=== PATIENT | male | born 1990 | race Caucasian/White ===

== ENCOUNTER 2019-05-15 12:53 | Observation (INO) ==
[2019-05-15] MEDS ORDERED: SODIUM CHLORIDE 0.9% 1,000 ML IV STA (15:35)
[2019-05-15] MEDS ORDERED: KETOROLAC 30 MG/1 ML VIAL IV STA (15:35)
[2019-05-15] MEDS ORDERED: metroNIDAZOLE INJ 500 MG in PREMIX 1 EACH IV STA (16:05)
[2019-05-15 16:07] LABS: Basophils # 0.1 10*3/uL (0.0-0.2); Basophils % 0.5 % (0.0-0.8); Eosinophils # 0.7 10*3/uL (0.0-0.87); Eosinophils % 6.5 % (0.00-10.9); Hematocrit 46.2 VOL% (42.0-52.0); Hemoglobin 15.1 GM/DL (14.0-18.0); Immature Granulocytes % 0.6 %; Immature Granulocytes Absolute 0.06 #; Lymphocytes # 2.7 10*3/uL (1.4-4.0); Lymphocytes % 25.5 % (21.2-54.2); Mean Corpuscular HGB Conc 32.7 GM/DL (32-36); Mean Corpuscular Volume 92.4 FL (87-102); Mean Platelet Volume 10.6 FL (9.6-12.0); Monocytes % 10.8 % (1.7-12.7); Neutrophils % 56.1 % (38.7-73.9); Platelet Count 196 T/CUMM (130-400); Red Cell Distribution Width 12.3 % (9.3-17.3); White Blood Count 10.6 T/CUMM (4-12)
[2019-05-15 16:25] LABS: Apearance,Urine CLEAR (Clear); Bilirubin,Urine Negative (Negative); Blood, Urine Negative (Negative); Glucose,Urine (UA) Negative (Negative); Ketones,Urine Negative (Negative); Mucus,Urine Occasional /LPF (Occasional); Nitrite,Urine Negative (Negative); Protein,Urine Negative; RBC,Urine 4 /HPF (0-4); Urine Color Yellow (Yellow); Urine Specific Gravity 1.025 (1.001-1.035); Urine Urobilinogen < 2.0 EU/DL (<2.0); WBC,Urine <1 /HPF (0-6)
[2019-05-15 16:37] LABS: Albumin 3.9 G/DL (3.4-5.0); Bilirubin,Total 0.6 MG/DL (0.2-1.0); Calcium 8.9 MG/DL (8.5-10.1); Osmolality,Calculated 277.4 MOS/KG (273-304); Total Protein 7.3 G/DL (6.4-8.3)
[2019-05-15] MEDS ORDERED: fentaNYL 100 MCG/2 ML VIAL IV STA (16:52)
[2019-05-15] MEDS ORDERED: ONDANSETRON 4 MG/2 ML VIAL IV STA (16:52)
[2019-05-15] MEDS ORDERED: LEVOFLOXACIN INJ 750 MG in PREMIX 1 EACH IV STA (16:52)
[2019-05-15] MEDS ORDERED: LEVOFLOXACIN INJ 150 ML IV ONE (16:58)
[2019-05-15] MEDS ORDERED: fentaNYL 100 MCG/2 ML VIAL IV PRN (17:06)
[2019-05-15] MEDS ORDERED: ONDANSETRON 4 MG/2 ML VIAL IV PRN ×2 (17:06→19:18)
[2019-05-15] MEDS ORDERED: HYDROmorphone 2 MG/1 ML VIAL IV PRN (19:18)
[2019-05-15] MEDS ORDERED: ACETAMINOPHEN 325 MG TABLET PO PRN (19:18)
[2019-05-15] MEDS ORDERED: PROMETHAZINE 25 MG/1 ML VIAL IM PRN (19:18)
[2019-05-15] MEDS: PIPERACILLIN/TAZOBACTAM 3,375 MG in SODIUM CHLORIDE 0.9% 100 ML IV SCH (20:02)
[2019-05-15] MEDS: KETOROLAC 15 MG/1 ML VIAL IV SCH (20:03)
[2019-05-15] MEDS ORDERED: DICYCLOMINE 20 MG TABLET PO SCH (21:00)
[2019-05-16] MEDS ORDERED: metroNIDAZOLE INJ 500 MG in PREMIX 1 EACH IV SCH
[2019-05-16] MEDS: KETOROLAC 15 MG/1 ML VIAL IV SCH ×2 (01:23→08:22)
[2019-05-16] MEDS: PIPERACILLIN/TAZOBACTAM 3,375 MG in SODIUM CHLORIDE 0.9% 100 ML IV SCH (04:36)
[2019-05-16 05:02] LABS: Basophils % 0.3 % (0.0-0.8); Eosinophils # 0.7 10*3/uL (0.0-0.87); Eosinophils % 6.6 % (0.00-10.9); Hematocrit 41.6 VOL% (42.0-52.0); Hemoglobin 13.7 GM/DL (14.0-18.0); Immature Granulocytes % 0.5 %; Immature Granulocytes Absolute 0.05 #; Lymphocytes # 2.8 10*3/uL (1.4-4.0); Lymphocytes % 28.5 % (21.2-54.2); Mean Corpuscular HGB Conc 32.9 GM/DL (32-36); Mean Corpuscular Volume 91.6 FL (87-102); Mean Platelet Volume 11.4 FL (9.6-12.0); Monocytes % 11.4 % (1.7-12.7); Neutrophils % 52.7 % (38.7-73.9); Platelet Count 192 T/CUMM (130-400); Red Blood Count 4.54 MC/CUMM (3.8-5.5); Red Cell Distribution Width 12.2 % (9.3-17.3); White Blood Count 9.9 T/CUMM (4-12)
[2019-05-16 05:27] LABS: Calcium 9.3 MG/DL (8.5-10.1); Osmolality,Calculated 281.3 MOS/KG (273-304)
[2019-05-16] MEDS ORDERED: CIPROFLOXACIN INJ 400 MG in PREMIX 1 EACH IV SCH (06:00)
[2019-05-16 07:36] VITALS: BP 120/65
[2019-05-16] MEDS ORDERED: ENOXAPARIN 40 MG/0.4 ML SYRINGE SUBCUT SCH (12:00)
== END 2019-05-16 10:37 | disposition home or self-care (01) ==
LOC: N.EDINP 12:53 → N.ED 12:53 → N.3E 18:56
PROVIDERS: ADMIT Surgery; ATTEND Surgery